=== PATIENT | male | born 1990 | race Caucasian/White ===

== ENCOUNTER 2020-07-30 02:29 | Emergency (ER) | payer OTHER ==
[2020-07-30 03:47] LABS: BASOPHIL 0.7 % (0-2); EOSINOPHIL 2.9 % (0-5); HGB 15.6 g/dl (13.2-18.0); LYMPHOCYTE 25.6 % (15-48); MCH 31.4 pg (25.0-31.0); MCHC 33.9 g/dL (32.0-36.0); MCV 92.6 fL (78.0-100.0); MONOCYTE 9.9 % (0-12); MPV 9.5 fL (6.0-9.5); NEUTROPHIL 60.6 % (41-80); NRBC 0; PLT 239 K/uL (150-400); RBC 4.97 M/uL (4.70-6.00); RDW 12.5 % (11.5-14.0); WBC 7.5 K/uL (4.0-10.5)
[2020-07-30 04:03] LABS: BUN/CREAT RATIO (CALC) 14.5 RATIO; CREATININE 0.76 mg/dL (0.67-1.17); POTASSIUM 3.7 mmol/L (3.5-5.1)
[2020-07-30 04:04] LABS: TOTAL CELL COUNT 100
[2020-07-30 04:06] LABS: BAND 3 % (0-10); LYMPHOCYTE(M) 27 % (15-48); NEUTROPHILS(M) 56 % (41-80)
[2020-07-30 04:07] LABS: BASOPHIL(M) 0 % (0-2); EOSINOPHIL(M) 4 % (0-5); MONOCYTE(M) 10 % (0-12); PLATELET ESTIMATE NORMAL; PLATELET MORPHOLOGY NORMAL; VARIANT LYMPHOCYTE 0
== END 2020-07-30 05:01 | disposition home or self-care (01) ==
LOC: FER 02:29
PROVIDERS: Emergency Medicine
DX: M54.2 Cervicalgia (principal); H53.8 Other visual disturbances; I10 Essential (primary) hypertension; F17.210 Nicotine dependence, cigarettes, uncomplicated
CPT/HCPCS: 36415; 70450; 80048; Q9967